=== PATIENT | female | born 1995 | race American Indian/Alaskan Native ===

== ENCOUNTER 2021-03-04 02:51 | Emergency (ER) | payer BC ==
[2021-03-04 03:36] VITALS: BP 132/86
--- NOTE | 2021-03-04 03:55 | Emergency Department Report ---
ED General Adult HPI - General Chief complaint: Skin/Abscess/Foreign Body Stated complaint: FB IN EAR Source: patient Mode of arrival: Ambulatory Limitations: No Limitations - History of Present Illness Initial comments: Patient is a 25-year-old -[place] female with no past medical history presents to the ED with complaint of suspected foreign body in the left ear for the last 1 hour. Patient states that she was asleep when she was woken up with a foreign body in the left ear which she suspects may have been an insect moving around in the left ear. Patient states that she decided come to the ED for evaluation because in the last 1 hour, she has not felt any movement in her left ear and wanted to ensure that the foreign body was calm out of the left ear. Patient denies ear pain, headache, dizziness, syncope, hearing loss, nausea and vomiting, sore throat, chest pain or shortness of breath and change in vision. MD Complaint: Foreign body in left ear -: Sudden, hour(s) (1) Location: face (Left ear) Radiation: non-radiation Severity scale (0 -10): 0 Quality: dull Consistency: intermittent Improves with: none Worsens with: none Associated Symptoms: denies other symptoms, other (Foreign body left ear). denies: confusion, cough, diaphoresis, fever/chills, loss of appetite, malaise, nausea/vomiting, rash, seizure, shortness of breath, syncope, weakness Treatments Prior to Arrival: none - Related Data Allergies Allergy/AdvReac Type Severity Reaction Status Date / Time No Known Allergies Allergy Verified 03/04/21 03:35 ED Review of Systems ROS: Stated complaint: FB IN EAR Other details as noted in HPI Constitutional: denies: chills, fever Eyes: denies: eye pain, eye discharge, vision change ENT: other (Foreign body left ear). denies: ear pain, throat pain Respiratory: denies: cough, shortness of breath, wheezing Cardiovascular: denies: chest pain, palpitations Endocrine: no symptoms reported Gastrointestinal: denies: abdominal pain, nausea, vomiting, diarrhea Genitourinary: denies: urgency, dysuria, discharge Musculoskeletal: denies: back pain, joint swelling, arthralgia Skin: denies: rash, lesions Neurological: denies: headache, weakness, paresthesias Psychiatric: denies: anxiety, depression Hematological/Lymphatic: denies: easy bleeding, easy bruising ED Past Medical Hx - Past Medical History Previous Medical History?: No ED Physical Exam - General Limitations: No Limitations General appearance: alert, in no apparent distress - Head Head exam: Present: atraumatic, normocephalic, normal inspection - Eye Eye exam: Present: normal appearance, PERRL, EOMI Pupils: Present: normal accommodation - ENT ENT exam: Present: normal exam, normal orophraynx, mucous membranes moist, TM's normal bilaterally, normal external ear exam, other (No foreign body identified in the left or right ear) - Neck Neck exam: Present: normal inspection, full ROM. Absent: tenderness - Respiratory Respiratory exam: Present: normal lung sounds bilaterally. Absent: respiratory distress, wheezes, rales, stridor, chest wall tenderness, accessory muscle use, prolonged expiratory - Cardiovascular Cardiovascular Exam: Present: normal rhythm, tachycardia, normal heart sounds. Absent: systolic murmur, diastolic murmur, rubs, gallop - GI/Abdominal GI/Abdominal exam: Present: soft, normal bowel sounds. Absent: tenderness, guarding, hyperactive bowel sounds, hypoactive bowel sounds, organomegaly, mass - Extremities Exam Extremities exam: Present: normal inspection, full ROM, normal capillary refill - Back Exam Back exam: Present: normal inspection, full ROM. Absent: CVA tenderness (L), muscle spasm, paraspinal tenderness, vertebral tenderness - Neurological Exam Neurological exam: Present: alert, oriented X3, CN II-XII intact, normal gait, reflexes normal - Psychiatric Psychiatric exam: Present: normal affect, normal mood, anxious - Skin Skin exam: Present: warm, dry, intact, normal color. Absent: rash ED Course Vital Signs 03/04/21 03:35 Temperature 98.7 F Pulse Rate 102 H Respiratory 20 Rate Blood Pressure 132/86 O2 Sat by Pulse 100 Oximetry ED Medical Decision Making - Medical Decision Making This is a 25-year-old -[place] female with no past medical history presents to the ED with complaint of suspected foreign body in the left ear for the last 1 hour. Patient states that she was asleep when she was woken up with a foreign body in the left ear which she suspects may have been an insect moving around in the left ear. Patient states that she decided come to the ED for evaluation because in the last 1 hour, she has not felt any movement in her left ear and wanted to ensure that the foreign body was calm out of the left ear. In the ED, patient is alert and oriented x3 and is not in any distress. Physical exam is unremarkable with no foreign body identified in the left or right ears. Patient was therefore discharged home and advised to follow-up with her primary care physician as needed return to the ED immediately if symptoms get worse - Differential Diagnosis Foreign body left ear; cerumen impaction; Critical care attestation.: If time is entered above; I have spent that time in minutes in the direct care of this critically ill patient, excluding procedure time. ED Disposition Clinical Impression: Well adult on routine health check Disposition: 01 HOME / SELF CARE / HOMELESS Is pt being admited?: No Does the pt Need Aspirin: No Condition: Stable Additional Instructions: Follow-up with your primary care physician as needed. Return to the ED immediately if symptoms get worse. Referrals: [facility] [Provider Group] - 3-5 Days Time of Disposition: 03:55 Print Language: DOMINICAN
== END 2021-03-04 05:45 | disposition home or self-care (01) ==
LOC: ED 02:51
DX: T16.1XXA Foreign body in right ear, initial encounter (principal); Z00.00 Encounter for general adult medical examination without abnormal findings; X58.XXXA Exposure to other specified factors, initial encounter; Y93.89 Activity, other specified; Y92.89 Other specified places as the place of occurrence of the external cause
CPT/HCPCS: 99281